=== PATIENT | male | born 1975 | race Two or more races ===

== ENCOUNTER 2021-01-09 01:42 | Emergency (ER) | payer OTHER ==
[2021-01-09 02:19] VITALS: BP 156/98; PULSE 85; TEMP 98.1; BMI 30.8
== END 2021-01-09 03:15 | disposition home or self-care (01) ==
LOC: JER 01:42
DX: R07.89 Other chest pain (principal)
CPT/HCPCS: 71046-TC-FY; 93005; 93010; 99284-25